=== PATIENT | female | born 1970 | race Caucasian/White ===

== ENCOUNTER 2019-06-29 16:41 | Emergency (ER) | payer MEDICAID ==
[~2019-06-29] VITALS: Ht 160 cm; Wt 93.5 kg
--- NOTE | 2019-06-29 16:54 | NUR ---
PIOTR NARVAEZ AT .
[2019-06-29 17:19] VITALS: BP 140/75
--- NOTE | 2019-06-29 17:40 | NUR ---
D/C INSTRUCTIONS, MEDS & F/U APPT RV'WD WITH PT. RX GIVEN. SPACER PROVIDED. PT AMBULATED OUT OF ED WITHOUT DIFFICULTY.
== END 2019-06-29 17:44 | disposition home or self-care (01) ==
LOC: ED 17:43
DX: J06.9 Acute upper respiratory infection, unspecified (principal); F17.210 Nicotine dependence, cigarettes, uncomplicated; R50.9 Fever, unspecified; M79.10 Myalgia, unspecified site; R94.31 Abnormal electrocardiogram [ECG] [EKG]
CPT/HCPCS: 71046; 93005; 99283

== ENCOUNTER 2019-09-20 00:10 | Emergency (ER) | payer MEDICAID ==
[~2019-09-20] VITALS: Ht 160 cm; Wt 93.5 kg
[2019-09-20] MEDS ORDERED: ALBUTEROL (00:18)
--- NOTE | 2019-09-20 00:34 | NUR ---
TASK RN: PATIENT SPEAKING IN FULL SENTENCES, RESPIRATIONS EVEN AND UNLABORED, LUNG SOUNDS CLEAR THROUGHOUT. DENIES DIFFICULTY SWALLOWING, ABLE TO MANAGE SECRETIONS. SPO2 AT 99% ON RA, DENIES SOB. SPO2 AND BP MONITORING IN PLACE
[2019-09-20] MEDS ORDERED: methylPREDNISolone SOD SUCC 125 MG/2 ML ONE (00:36)
[2019-09-20] MEDS ORDERED: FAMOTIDINE 20 MG/2 ML ONE (00:37)
[2019-09-20] MEDS ORDERED: DIPHENHYDRAMINE 50 MG/ML, 1ML ONE (00:37)
--- NOTE | 2019-09-20 00:48 | NUR ---
Bedside report received from Beatrice KAUFFMAN
--- NOTE | 2019-09-20 00:49 | NUR ---
PATIENT MEDICATED PER EMAR, TOLERATED WELL.
--- NOTE | 2019-09-20 00:49 | NUR ---
DALY LOPEZ UPDATED ON PLAN OF CARE
--- NOTE | 2019-09-20 00:57 | NUR ---
pt resting in gurney, NAD, RESP WNL, skin warm and dry other than swelling and dampness noted on scalp and around hairline, VSS, call light on lap, friend at , [facility].
[2019-09-20] MEDS ORDERED: DIPHENHYDRAMINE 50 MG/ML, 1ML IVPush ONE (01:00)
[2019-09-20] MEDS ORDERED: methylPREDNISolone SOD SUCC 125 MG/2 ML IVPush ONE (01:00)
[2019-09-20] MEDS ORDERED: FAMOTIDINE 20 MG/2 ML IVPush ONE (01:00)
[2019-09-20] MEDS ORDERED: SODIUM CHLORIDE FLUSH 10ML SYR IVF ONE (01:00)
[2019-09-20 02:14] VITALS: BP 136/84
--- NOTE | 2019-09-20 02:17 | NUR ---
Patient/Caregiver given discharge instructions and they have confirmed that they understand the instructions. Patient ambulatory with steady gait. DENIES ADDITIONAL QUESTIONS AT THIS TIME. NAD, RESP WNL, P/W/D, FCS, MAEx4.
== END 2019-09-20 02:18 | disposition home or self-care (01) ==
LOC: ED 02:15
DX: T78.3XXA Angioneurotic edema, initial encounter (principal); L24.3 Irritant contact dermatitis due to cosmetics; F17.210 Nicotine dependence, cigarettes, uncomplicated
CPT/HCPCS: 96374; 96375; 99284; J1200; J2930; J3490

== ENCOUNTER 2019-11-24 14:38 | Emergency (ER) | payer MEDICAID ==
[~2019-11-24] VITALS: Ht 160 cm; Wt 91.5 kg
[~2019-11-24 14:38] MED LIST: ALBUTEROL
[2019-11-24 14:40] VITALS: BP 149/98
--- NOTE | 2019-11-24 15:28 | NUR ---
PT D/C'D PER ORDERS. PT VERBALIZED UNDERSTANDING OF D/C ORDERS.
== END 2019-11-24 15:32 | disposition home or self-care (01) ==
LOC: ED 15:19
DX: J40 Bronchitis, not specified as acute or chronic (principal); Z76.0 Encounter for issue of repeat prescription; F17.210 Nicotine dependence, cigarettes, uncomplicated
CPT/HCPCS: 99281